=== PATIENT | female | born 1995 | race Caucasian/White ===

== ENCOUNTER 2018-11-12 05:13 | Emergency (ER) | payer OTHER ==
[2018-11-12 05:28] VITALS: BP 136/88; PULSE 97; TEMP 98.1; BMI 40.5
[2018-11-12] MEDS ORDERED: diphenhydrAMINE HCL 12.5 MG/5 ML UNIT-DOSE CUPS PO ONE (05:31)
[2018-11-12] MEDS ORDERED: predniSONE 20 MG TABLET (UD) PO ONE (05:31)
[2018-11-12] MEDS ORDERED: RANITIDINE HCL 150 MG TABLET (FP) PO ONE (05:31)
[2018-11-12] MEDS ORDERED: diphenhydrAMINE HCL 25 MG CAPSULE (FP) PO ONE (05:35)
[2018-11-12] MEDS ORDERED: predniSONE 20 MG TABLET (UD) ONE (05:35)
[2018-11-12] MEDS ORDERED: RANITIDINE HCL 150 MG TABLET (FP) ONE (05:36)
--- NOTE | 2018-11-12 05:38 | PDOC ---
Attending Attestation - Resident Resident Name: Pacheco Chapin - ED Attending Attestation I have performed the following: I have examined & evaluated the patient, The case was reviewed & discussed with the resident, I agree w/resident's findings & plan - HPI HPI: 11/12/18 05:39 Pt had lip swelling and itchy hands after eating mexican food last night. SHe has no known allergies. - Physicial Exam PE: 11/12/18 05:40 Ahree with resident exam - Medical Decision Making 11/12/18 05:40 Home with benadyl, prednisone; and epipen
--- NOTE | 2018-11-12 05:38 | PDOC ---
History of Present Illness - General Chief Complaint: Edema Stated Complaint: SWOLLEN LIP Time Seen by Provider: 11/12/18 05:15 - History of Present Illness Initial Comments: 11/12/18 05:33 23 yo F with no significant pmh who p/w lower lip swelling, and wrist itching. 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 No identifiable triggers or alleviators. Denies contact exposure, emollients, detergents, makeup, soaps, change in diet. Denies h/o similar presentation. No h/o EpiPen use, or prior intubation/anaphylaxis. Patient denies trouble swallowing, drinking, eating, muffled voice/hoarseness, RANGEL, vision change, palpitations, cough, wheezing, orthopena, PND, leg swelling/ pain, N/V, F,C, CP, SOB, urinary complaints, hematuria, BPR, abdominal pain, diarrhea, constipation, lightheadedness, weakness, sensory changes. PMHx: as noted above ROS: as noted SHx: Denies Etoh, IVDA, tobacco use Allergies: NKDA Past History - Past Medical History Allergies/Adverse Reactions: Allergies Allergy/AdvReac Type Severity Reaction Status Date / Time No Known Allergies Allergy Verified 11/12/18 05:25 Home Medications: Ambulatory Orders EPINEPHrine (EPI-PEN 0.3MG) [Epipen 0.3MG -] 0.3 mg IM ASDIR #2 pens 11/12/18 Prednisone [Prednisone 50 MG TABLETS] 50 mg PO DAILY #3 tablet 11/12/18 Ranitidine [Zantac -] 150 mg PO DAILY #3 tablet 11/12/18 COPD: No - Immunization History Immunization Up to Date: Yes - Suicide/Smoking/Psychosocial Hx Smoking History: Never smoked Have you smoked in the past 12 months: No Information on smoking cessation initiated: No Hx Alcohol Use: No Drug/Substance Use Hx: No Review of Systems - Review of Systems Comments:: 11/12/18 05:37 GENERAL/CONSTITUTIONAL: No fever or chills. No weakness. HEAD, EYES, EARS, NOSE AND THROAT: + lip swelling, and rash. No change in vision. No ear pain or discharge. No sore throat. CARDIOVASCULAR: No chest pain or shortness of breath RESPIRATORY: No cough, wheezing, or hemoptysis. GASTROINTESTINAL: No nausea, vomiting, diarrhea or constipation. GENITOURINARY: No dysuria, frequency, or change in urination. MUSCULOSKELETAL: No joint or muscle swelling or pain. No neck or back pain. SKIN: No rash NEUROLOGIC: No headache, vertigo, loss of consciousness, or change in strength/ sensation. ENDOCRINE: No increased thirst. No abnormal weight change HEMATOLOGIC/LYMPHATIC: No anemia, easy bleeding, or history of blood clots. ALLERGIC/IMMUNOLOGIC: No hives or skin allergy. *Physical Exam - Vital Signs Last Vital Signs Temp Pulse Resp BP Pulse Ox 98.1 F 97 H 20 136/88 98 11/12/18 05:25 11/12/18 05:25 11/12/18 05:25 11/12/18 05:25 11/12/18 05:25 - Physical Exam Comments: 11/12/18 05:38 GENERAL: Awake, alert, and fully oriented, in no acute distress HEAD: No signs of trauma, normocephalic, atraumatic EYES: PERRLA, EOMI, sclera anicteric, conjunctiva clear ENT: + Lower lip swelling. Auricles normal inspection, hearing grossly normal, nares patent, oropharynx clear without exudates. Moist mucosa NECK: Normal ROM, supple, no lymphadenopathy, JVD, or masses LUNGS: No distress, speaks full sentences, clear to auscultation bilaterally HEART: Regular rate and rhythm, normal S1 and S2, no murmurs, rubs or gallops, peripheral pulses normal and equal bilaterally. ABDOMEN: Soft, nontender, normoactive bowel sounds. No guarding, no rebound. No masses EXTREMITIES : Normal inspection, Normal range of motion, no edema. No clubbing or cyanosis. NEUROLOGICAL: Cranial nerves II through XII grossly intact. Normal speech, normal gait, no focal sensorimotor deficits SKIN: Warm, Dry, normal turgor, no rashes or lesions noted Medical Decision Making - Medical Decision Making 11/12/18 05:35 23 yo F with no significant pmh who p/w lower lip swelling, and wrist itching this AM. Vitals wnl, AF, A&Ox3. Diffuse lower lip swelling. Denies dysphagia, palatal edema, stridor, muffled voice/hoarseness, wheezing, cough, abdominal pain, diarrhea. No evidence of anaphylaxis or widespread systemic involvement, 0 /4 SIRS criteria. Absent evidence of mucosal edema, airway compromise. Will provide symptom control and reassess. Low suspicion angioedema. Provide symptom control and reasess. Ed Course: Diphehydramine, ranitidine, prednisone ranitidine, prednisone sent to pharmacy Patient stable for d/c with return precautions Epipen sent to pharmacy *DC/Admit/Observation/Transfer Diagnosis at time of Disposition: Lip swelling - Discharge Dispostion Disposition: HOME Condition at time of disposition: Stable Decision to Admit order: No - Prescriptions Prescriptions: EPINEPHrine (EPI-PEN 0.3MG) [Epipen 0.3MG -] 0.3 mg IM ASDIR #2 pens Prednisone [Prednisone 50 MG TABLETS] 50 mg PO DAILY #3 tablet Ranitidine [Zantac -] 150 mg PO DAILY #3 tablet - Referrals Referrals: Tad Jarvis MD [Primary Care Provider] - - Patient Instructions Printed Discharge Instructions: DI for General Allergic Reactions Additional Instructions: Please return to the emergency department with any new or worsening symptoms or concerns. Please follow up with your primary care physician within 72 hours. Take Ranitidine and Prednisone daily. Advised to follow up with vehicle safety inspector. - Post Discharge Activity
== END 2018-11-12 06:07 | disposition home or self-care (01) ==
LOC: JER 05:13
DX: T78.1XXA Other adverse food reactions, not elsewhere classified, initial encounter (principal); R22.0 Localized swelling, mass and lump, head; L29.8 Other pruritus; X58.XXXA Exposure to other specified factors, initial encounter
CPT/HCPCS: 99282-25

== ENCOUNTER 2024-03-16 02:50 | Emergency (ER) | payer OTHER ==
[2024-03-16 02:59] VITALS: BMI 41.1
[2024-03-16] MEDS ORDERED: ONDANSETRON 4 MG/2 ML VIAL ONE (03:53)
[2024-03-16] MEDS ORDERED: FAMOTIDINE 20 MG/50 ML IVPB 20 MG/50 ML MG IVPB ONE (03:53)
[2024-03-16] MEDS ORDERED: ACETAMINOPHEN INJECTION 100 ML IVPB ONE (03:53)
[2024-03-16 04:00] LABS: BASO % 0.6 % (0-2.0); EOS % 0.2 % (0-4.5); HEMATOCRIT 41.6 % (32.4-45.2); HEMOGLOBIN 13.9 GM/dL (10.7-15.3); LYMPH % 12.9 % (8-40); MCHC 33.5 g/dl (32.0-36.0); MEAN CELL VOLUME 89.7 fl (80-96); MEAN PLT VOLUME 10.1 fl (7.5-11.1); NEUT % 82.3 % (42.8-82.8); PLATELET COUNT 290 10^3/uL (134-434); RBC 4.64 M/mm3 (3.60-5.2); RDW 14.1 % (11.6-15.6); WHITE BLOOD COUNT 10.2 K/mm3 (4.0-10.0)
[2024-03-16] MEDS: ACETAMINOPHEN 1000 MG/100 ML BAG IVPB ONE (04:05)
[2024-03-16] MEDS: FAMOTIDINE 20 MG/50 ML IVPB 20 MG/50 ML MG IVPB ONE (04:05)
[2024-03-16] MEDS: ONDANSETRON 4 MG/2 ML VIAL IVPUSH ONE (04:05)
[2024-03-16 04:21] LABS: ALBUMIN 3.8 g/dl (3.4-5.0); ANION GAP 8 mmol/L (4-13); BLOOD UREA NITROGEN 11.2 mg/dL (7-18); CALCIUM 9.1 mg/dL (8.5-10.1); CHLORIDE 104 mmol/L (98-107); CO2 27 mmol/L (21-32); GLUCOSE,RANDOM 127 mg/dL (74-106); MAGNESIUM 1.9 mg/dL (1.8-2.4); SODIUM 139 mmol/L (136-145)
[2024-03-16 04:23] LABS: CREATININE 0.9 mg/dL (0.55-1.3); PHOSPHOROUS 3.4 mg/dL (2.5-4.9); SGOT/AST 27 U/L (15-37); SGPT/ALT 37 U/L (13-61)
[2024-03-16 04:25] LABS: BILIRUBIN,TOTAL 0.4 mg/dL (0.2-1); TOT PROT 7.9 g/dl (6.4-8.2)
[2024-03-16 04:26] LABS: ALK PHOS 82 U/L (45-117)
[2024-03-16 04:44] LABS: EPI CELLS >36 /uL (0-25.1); HYALINE CASTS 1 /uL (0-3.1); URINE APPEARANCE CLEAR; URINE BACTERIA 1196 /uL (0-1359); URINE BILIRUBIN NEGATIVE (NEGATIVE); URINE COLOR YELLOW; URINE GLUCOSE (UA) NEGATIVE (NEGATIVE); URINE KETONE NEGATIVE (NEGATIVE); URINE LEUK ESTERASE NEGATIVE (NEGATIVE); URINE NITRITE NEGATIVE (NEGATIVE); URINE PROTEIN 1+ (NEGATIVE); URINE RBC 49 /uL (0-23.9); URINE WBC 21 /uL (0-25.8)
[2024-03-16 05:02] VITALS: BP 117/77; PULSE 88; RESP 19; TEMP 98.5
== END 2024-03-16 06:38 | disposition home or self-care (01) ==
LOC: JER 02:50
PROC: 3E033GC Introduction of Other Therapeutic Substance into Peripheral Vein, Percutaneous Approach (ICD-10-PCS; principal; 2024-03-16)
PROC: 3E033NZ Introduction of Analgesics, Hypnotics, Sedatives into Peripheral Vein, Percutaneous Approach (ICD-10-PCS; 2024-03-16)
PROC: 3E033GC Introduction of Other Therapeutic Substance into Peripheral Vein, Percutaneous Approach (ICD-10-PCS; 2024-03-16)
DX: R11.2 Nausea with vomiting, unspecified (principal); R51.9 Headache, unspecified; R10.13 Epigastric pain; R06.02 Shortness of breath; R07.89 Other chest pain
CPT/HCPCS: 36415; 80053; 81003; 83735; 84100; 84484; 84702; 85025; 93005; 93010; 99284-25; J0131